=== PATIENT | male | born 1960 | race Two or more races ===

== ENCOUNTER 2017-01-30 22:10 | Emergency (ER) | payer OTHER ==
[2017-01-30] MEDS ORDERED: FISH OIL 11000 MG/CA PO (22:46)
[2017-01-30] MEDS ORDERED: GLUCOPHAGE1000 M1 PO (22:46)
[2017-01-30] MEDS ORDERED: ASPIRIN81 M1 PO (22:46)
[2017-01-30] MEDS ORDERED: AMARYL2 M1 PO (22:46)
[2017-01-30] MEDS ORDERED: VITAMIN D31000 UNI3 PO (22:47)
[2017-01-30 23:07] LABS: BASO % 0.4 % (0-2); EOS % 3.1 % (0-7); EOSINOPHIL ABSOLUTE COUNT 0.3 tho/cmm (0.0-0.7); HCT-HEMATOCRIT 37.2 % (36.0-53.5); HGB-HEMOGLOBIN 12.7 gm/dl (13.5-17.0); IMMATURE GRANULOCYTES ABSOLUTE 0.01 tho/cmm (0-0.03); IMMATURE GRANULOCYTES PERCENT 0.1 % (0-0.3); LYMPH % 43.2 % (20-45); LYMPH ABSOLUTE COUNT 3.4 tho/cmm (0.8-4.5); MCH (MEAN CORPUSCULAR HGB) 28.7 pg (28.0-32.0); MCHC MEAN CORPUSCULAR HGB CONC 34.1 % (32.0-36.0); MEAN PLATELET VOLUME 10.4 cmc (9.4-12.4); MONO % 5.3 % (0-12); MONOCYTE ABSOLUTE COUNT 0.4 tho/cmm (0.0-1.2); NEUTROPHIL ABSOLUTE COUNT 3.8 tho/cmm (1.6-8.0); NEUTROPHIL-AUTOMATED 3.8 tho/cmm (1.6-8.0); NEUTROPHILS % 47.9 % (40-80); PLATELET COUNT 199 tho/cmm (150-450); RED BLOOD COUNT 4.43 mil/cmm (4.40-5.70)
[2017-01-30 23:19] LABS: ANION GAP 13 mmol/L (0-20); BLOOD UREA NITROGEN 15 mg/dl (6-24); CALCIUM 8.9 mg/dl (8.5-10.5); CARBON DIOXIDE-VENOUS 25 mmol/L (22-32); CHLORIDE 108 mmol/l (96-110); CREATININE 1.21 mg/dl (0.60-1.30); GLUCOSE 147 mg/dL (70-110); SODIUM 142 mmol/L (135-145); eGFR VALUE FOR BLACK 76 mL/Min
[2017-01-30 23:45] LABS: URINE BILIRUBIN NEGATIVE (NEG); URINE BLOOD NEGATIVE (NEG); URINE GLUCOSE (UA) NEGATIVE (NEG); URINE KETONE NEGATIVE (NEG); URINE LEUKOCYTE ESTERASE NEGATIVE (NEG); URINE NITRITE NEGATIVE (NEG); URINE PROTEIN NEGATIVE (NEG); URINE SPECIFIC GRAVITY 1.005 (1.003-1.030)
[2017-01-30 23:50] LABS: URINE APPEARANCE CLEAR; URINE COLOR PALE YELLOW
[2017-01-31] MEDS ORDERED: FLOMAX0.4 M1 PO (00:49)
== END 2017-01-31 01:05 ==
LOC: EDMED 22:10
PROVIDERS: Emergency Medicine
DX: N20.1 Calculus of ureter (principal); K40.90 Unilateral inguinal hernia, without obstruction or gangrene, not specified as recurrent; E11.9 Type 2 diabetes mellitus without complications; Z79.84 Long term (current) use of oral hypoglycemic drugs
CPT/HCPCS: J7030; Q9967